=== PATIENT | male | born 2000 | race African-American/Black ===

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

== ENCOUNTER 2018-07-30 22:49 | Emergency (ER) | payer BC, SELFPAY ==
[2018-07-30 23:21] LABS: Bilirubin Negative (Negative); Blood, Urine Trace (Negative); Clarity Clear (Clear); Glucose, Urine (Dipstick) Negative (Negative); Leukocyte Small (Negative); Nitrite Negative (Negative); Protein, Urine (Dipstick) Negative (Neg-Trace); Specific Gravity, Urine 1.015 (1.005-1.030); Urobilinogen 0.2 mg/dL (0.2-1.0)
[2018-07-30 23:22] LABS: Bacteria/HPF Rare-Few HPF (None Seen); RBC/HPF 0-3 HPF (0-3)
[2018-07-31 19:30] LABS: Chlam.trachomatis by PCR,Urine Not Detected (NotDetected)
== END 2018-07-30 23:35 | disposition home or self-care (01) ==
LOC: NAV ERS 22:49
DX: S76.212A Strain of adductor muscle, fascia and tendon of left thigh, initial encounter (principal); R30.0 Dysuria; X50.9XXA Other and unspecified overexertion or strenuous movements or postures, initial encounter
CPT/HCPCS: 81003; 81015; 87086; 87491; 87591; 99283

== ENCOUNTER 2023-02-19 14:14 | Emergency (ER) | payer SELFPAY ==
[2023-02-19] MEDS ORDERED: Ibuprofen 800 MG TAB ONE (14:42)
== END 2023-02-19 15:37 | disposition home or self-care (01) ==
LOC: NAV ERS 14:14
DX: J02.9 Acute pharyngitis, unspecified (principal)
CPT/HCPCS: 87081; 87430; 99283

== ENCOUNTER 2023-02-28 00:04 | Emergency (ER) | payer OTHER, SELFPAY | END 2023-02-28 00:48 | disposition home or self-care (01) | LOC: NAV ERS 00:04 | DX: S46.911A Strain of unspecified muscle, fascia and tendon at shoulder and upper arm level, right arm, initial encounter (principal); X50.0XXA Overexertion from strenuous movement or load, initial encounter; Y93.F2 Activity, caregiving, lifting; Y92.69 Other specified industrial and construction area as the place of occurrence of the external cause | CPT/HCPCS: 99283 ==